=== PATIENT | male | born 2000 | race Caucasian/White ===

== ENCOUNTER 2021-03-20 17:47 | Emergency (ER) | payer MEDICAID, SELFPAY ==
[2021-03-20 17:48] VITALS: BP 140/67; PULSE 80; RESP 16; TEMP 36.6; O2SAT 100; BMI 23.3
--- NOTE | 2021-03-20 18:00 | EX.ED.DYSGE1 ---
HPI History of Present Illness Chief Complaint: Nausea/Vomiting Informant: patient and parent Onset/Context/Timing Onset: Today Current Severity: Moderate Maximum Severity: Moderate Narrative Narrative: Patient presents with nausea vomiting, body aches, subjective fever that started today. He admits to getting drunk last night. When he woke up this morning he was feeling ill. He did not measure his temperature but felt feverish. He is also had chills and sweats. He had vomiting but no diarrhea. No cough or URI symptoms. PFSH PFSH Medical History no medical history no medical history Home Medications ondansetron 4 mg PO Q8H PRN #10 tab 03/20/21 [Rx Last Taken Unknown] Allergy/AdvReac Type Severity Reaction Status Date / Time No Known Allergies Allergy Verified 03/20/21 17:48 Surgical History (Updated 03/20/21 @ 18:[address] Celia Serrato MD) H/O wrist surgery Social History Smoking Status: Current every day smoker tobacco type: e-cigarettes ROS ROS ED Constitutional Constitutional ED: Reports chills, fever(s), subjective and sweats Eyes Eyes: Denies change in vision ENT ENT ED: Denies sore throat Cardiovascular Cardiovascular: Denies chest pain Respiratory/Chest Respiratory/Chest: Denies cough or dyspnea Gastrointestinal Gastrointestinal: Reports abdominal pain, nausea and vomiting; Denies diarrhea Genitourinary Genitourinary ED: Denies dysuria Musculoskeletal Musculoskeletal: Reports myalgias; Denies back pain Integumentary Denies rash Neurologic Neurologic: Denies headache(s) or weakness Allergic/Immunologic Allergic/Immunologic ED: Denies urticaria EXAM Physical Exam Const Vital Signs: 03/20/21 17:48 Temperature 97.9 F Temperature Source Temporal Pulse Rate 80 Respiratory Rate 16 Blood Pressure 140/67 H Blood Pressure Mean 91 Pulse Ox 100 Oxygen Delivery Method Room Air Positive well nourished and well developed General Appearance ED: well developed HEENT Reports dry mucous membranes Mouth ED: Yes dry mucous membranes Mouth: dry mucous membranes Eyes PERRL and EOMs intact bilaterally Neck supple Chest Wall inspection of chest normal and palpation of chest normal Resp normal respiratory effort and clear to auscultation bilaterally Cardio regular rate and regular rhythm GI non-tender Auscultation: hypoactive bowel sounds Palpation: soft Extremity normal to inspection Neuro oriented x3 Sensorium / Orientation: alert Psych mental status grossly normal Skin no rashes or lesions noted MDM MDM MDM Narrative Medical decision making narrative: IV fluids and Zofran given. Lab work obtained. Lab Data Attestation: I reviewed the patient's lab results. Labs: Laboratory Results - last 24 hr 03/20/21 03/20/21 18:10 18:10 WBC 10.8 RBC 5.11 Hgb 16.1 Hct 45.3 MCV 88.6 MCH 31.5 MCHC 35.5 RDW Std Deviation 43.6 RDW Coeff of Chelsi 13.3 Plt Count 320 MPV 9.5 Immature Gran % (Auto) 0.400 Neut % (Auto) 86.6 H Lymph % (Auto) 9.3 L [place] % (Auto) 3.3 Eos % (Auto) 0.1 Baso % (Auto) 0.3 Absolute Neuts (auto) 9.3 H Absolute Lymphs (auto) 1.00 Nucleated RBC % 0 Sodium 137 Potassium 4.8 Chloride 106 Carbon Dioxide 23.0 Anion Gap 8 BUN 19 H Creatinine 1.19 Estim Creat Clear Calc 109.59 Est GFR (MDRD) Af Amer 101 Est GFR (MDRD) Non-Af 83 BUN/Creatinine Ratio 16.0 Glucose 79 Calcium 9.5 Total Bilirubin 0.80 Direct Bilirubin 0.24 AST 38 H ALT 35 Alkaline Phosphatase 73 Total Protein 8.2 Albumin 4.6 Globulin 3.6 Lipase 32 L Treatment and Re-Evaluation Comments:: Lab work largely unremarkable. On repeat evaluation patient feeling improved. Patient able to tolerate small amounts of Sprite. Patient be given prescription for Zofran. Discharge Plan Triage Chief Complaint: Nausea/Vomiting Other Complaint: Fever ED Provider: Celia Serrato Dx/Rx/DC Orders Clinical Impression: Vomiting Instructions: ED Vomiting (Adult) Prescriptions: New ondansetron 4 mg tablet,disintegrating 4 mg PO Q8H PRN (Reason: nausea and vomiting) Qty: 10 RF: 0 Primary Care Provider: Care Physician,No Primary Referrals: Nevaeh Salcedo MD [STAFF PHYSICIAN] - As Needed Care Physician,No Primary [Primary Care Provider] - Disposition Disposition: Home, Self Care
[2021-03-20] MEDS: Ondansetron 4 MG/2 ML Vial IV (18:12)
[2021-03-20] MEDS: Ketorolac 30 MG/ML Syringe IV (18:12)
[2021-03-20] MEDS: 0.9% Normal Saline 1,000 ML 1000 ML IV (18:12)
[2021-03-20 18:35] LABS: AST(SGOT) 38 U/L (15-37); Alanine Aminotransfer ALT/SGPT 35 U/L (16-61); Albumin, Serum 4.6 g/dL (3.2-5.0); Alkaline Phosphatase 73 U/L (45-117); Anion Gap 8 (5-15); BUN 19 mg/dL (7-18); Bilirubin, Direct 0.24 mg/dL (0.00-0.30); Calcium,Total 9.5 mg/dL (8.5-10.1); Chloride 106 mmol/L (98-107); Creatinine, Serum 1.19 mg/dL (0.70-1.30); EST Glomerular Filtration Rate 83 mL/min (>60); Est Glom Filt Rate - Afr Amer 101 mL/min (>60); Estimated Creatinine Clearance 109.59 ml/min; Globulin 3.6 g/dL (2.2-4.2); Glucose 79 mg/dL (74-106); Lipase 32 U/L (73-393); Potassium 4.8 mmol/L (3.5-5.1); Protein, Total 8.2 g/dL (6.4-8.2); Sodium Level 137 mmol/L (136-145)
[2021-03-20 18:40] LABS: Absolute Neutrophil Count 9.3 X10^3/uL (2.0-7.7); Basophil# 0.03 X10^3/uL; Basophil% 0.3 % (0-1); Eosinophil# 0.01 X10^3/uL; Eosinophils% 0.1 % (0-5); Hematocrit 45.3 % (40-54); Hemoglobin 16.1 g/dL (13.0-16.5); Lymphocyte % 9.3 % (19-41); Mean Corp Hgb Conc 35.5 g/dL (32-36); Mean Corpuscular Hgb 31.5 pg (27.0-32.0); Mean Corpuscular Volume 88.6 fL (80-94); Mean Platelet Vol. 9.5 fl (6.2-12.0); Monocyte# 0.36 X10^3/uL; Monocyte% 3.3 % (0-10); NRBC Flagged by Analyzer 0 % (0-5); Neutrophil # 9.33 X10^3/uL (2.7-7.7); Neutrophil % 86.6 % (47-70); Platelet Count 320 K/mm3 (150-450); RBC Distribution Width CV 13.3 % (11.6-14.6); RBC Distribution Width SD 43.6 fl (35.1-43.9); Red Blood Count 5.11 M/mm3 (4.6-6.2); White Blood Count 10.8 K/mm3 (4.4-11.0)
[2021-03-20 19:35] VITALS: BP 125/65; PULSE 76; RESP 17; O2SAT 99
--- NOTE | 2021-03-20 19:36 | NURSING ---
Patient done with care before need for maintenance fluids and keeping PO liquids down. Waiting on pharm for zofran home use.
== END 2021-03-20 19:51 | disposition home or self-care (01) ==
PROVIDERS: Emergency Provider Emergency Medicine; Visit Provider Emergency Medicine
DX: R11.2 Nausea with vomiting, unspecified (principal); R50.9 Fever, unspecified; F17.210 Nicotine dependence, cigarettes, uncomplicated
CPT/HCPCS: 80048; 80076; 83690; 85025; 87426; 96361; 96374; 96375; 99283; J7030; A4216; J2405

== ENCOUNTER 2021-03-26 00:06 | Emergency (ER) | payer MEDICAID, SELFPAY ==
[2021-03-26 00:07] VITALS: BP 129/78; PULSE 66; RESP 16; TEMP 36.7; O2SAT 98; BMI 23.6
--- NOTE | 2021-03-26 00:28 | EDS_ITS ---
HPI History of Present Illness Chief Complaint: ETOH Intox Informant: patient Narrative Narrative: Patient presents with concern for alcohol poisoning. He states he was here earlier this week with nausea and vomiting after drinking. It sounds like it got better. He states he started having nausea vomiting again today. At first he denied any drinking. He states he has not drank at all since he was seen here. Then I find out he did drink today. It took quite some time to find out that he was drinking beer rather than liquor or wine. But he cannot tell me how many beers he has been drinking. He cannot tell me if it is one beer or 30 beers 1 sixpack a case or anything. The patient is having quite a bit of difficulty telling me really any of his history and any useful detail. Of note, the patient is not at all sleepy or lethargic. He is wide awake and alert. He just seems to not be able to answer these or willing to be answering these questions. He denies pain but admits to vomiting. He has not seen blood. He states he has no chronic medical conditions He has no known allergies He was prescribed Zofran but did not take it because he does not like to take meds. Only surgery is wrist surgery. Is a student locally, does drink alcohol as above. PFSH PFSH Home Medications ondansetron 4 mg PO Q8H PRN #10 tab 03/20/21 [Rx Last Taken Unknown] Allergy/AdvReac Type Severity Reaction Status Date / Time No Known Allergies Allergy Verified 03/20/21 17:48 Surgical History H/O wrist surgery Social History Smoking Status: Current every day smoker tobacco type: e-cigarettes ROS ROS ED Constitutional Constitutional ED: Denies chills or fever(s) Eyes Eyes: Denies blurry vision or diplopia ENT ENT ED: Denies rhinorrhea Cardiovascular Cardiovascular: Denies chest pain Respiratory/Chest Respiratory/Chest: Denies cough or dyspnea Gastrointestinal Gastrointestinal: Reports nausea and vomiting; Denies abdominal pain or diarrhea Genitourinary Genitourinary ED: Denies dysuria Musculoskeletal Musculoskeletal: Denies myalgias Integumentary Denies rash Neurologic Neurologic: Denies headache(s) Endocrine Endocrinology: Denies polydipsia or polyuria Allergic/Immunologic Allergic/Immunologic ED: Denies urticaria EXAM Physical Exam Const Vital Signs: 03/26/21 00:07 Temperature 98.1 F Temperature Source Temporal Pulse Rate 66 Respiratory Rate 16 Blood Pressure 129/78 H Blood Pressure Mean 95 Pulse Ox 98 Oxygen Delivery Method Room Air Positive well nourished and well developed Constitutional Narrative: Patient is spontaneously wide awake and alert. He is nontoxic in appearance. He is holding an emesis bag but is not actually vomiting while I am in the room. General Appearance ED: well developed and NAD; Negative for cyanotic or diaphoretic HEENT Reports moist mucous membranes Negative for trauma Eyes General Eye ED: Negative for pale conjunctiva or scleral icterus Neck no JVD Chest Wall inspection of chest normal Resp normal respiratory effort and clear to auscultation bilaterally Effort and Inspection: Negative for pain with movement Auscultation: Negative for rales, rhonchi or wheezes Cardio regular rate GI normal to inspection, nondistended, normoactive bowel sounds, non-tender and non-distended Palpation: soft Back/Spine no CVA tenderness Extremity normal to inspection Neuro Sensorium / Orientation: alert Psych mental status grossly normal Skin no rashes or lesions noted General Skin Exam: Negative for jaundice MDM MDM MDM Narrative Medical decision making narrative: Patient CBC is normal. Electrolytes show minimal elevation of chloride and decreased potassium. These will self correct. LFTs are normal. Lipase is normal. Alcohol is quite high at 226. This patient is awake and alert. This makes me suspicious that he probably drinks regularly and more than he implies. He is not interested in detox. He has not had further vomiting. As long as no other issues occur, we will discharge him when he is sober. He is encouraged to not drink and to actually take the Zofran if he has problems with vomiting. Repeat abdominal exam shows that it is still benign. Patient is watched here. He has had no issues. No vomiting. [employer] is taking him back. He has been watched for over 3 hours. Lab Data Attestation: I reviewed the patient's lab results. Labs: Laboratory Results - last 24 hr 03/26/21 03/26/21 03/26/21 00:30 00:30 00:30 WBC 6.3 RBC 4.95 Hgb 15.6 Hct 43.7 MCV 88.3 MCH 31.5 MCHC 35.7 RDW Std Deviation 41.8 RDW Coeff of Chelsi 12.9 Plt Count 263 MPV 9.2 Immature Gran % (Auto) 0.200 Neut % (Auto) 50.9 Lymph % (Auto) 41.[address] [place] % (Auto) 5.7 Eos % (Auto) 1.3 Baso % (Auto) 0.5 Absolute Neuts (auto) 3.2 Absolute Lymphs (auto) 2.62 Nucleated RBC % 0 Sodium 140 Potassium 3.4 L Chloride 109 H Carbon Dioxide 23.0 Anion Gap 8 BUN 13 Creatinine 1.17 Estim Creat Clear Calc 111.46 Est GFR (MDRD) Af Amer 103 Est GFR (MDRD) Non-Af 85 BUN/Creatinine Ratio 11.1 Glucose 106 Calcium 8.0 L Total Bilirubin 0.30 AST 22 ALT 32 Alkaline Phosphatase 65 Total Protein 7.5 Albumin 4.1 Globulin 3.4 Albumin/Globulin Ratio 1.2 Lipase 162 Ethyl Alcohol 226.0 Discharge Plan Triage Chief Complaint: ETOH Intox ED Provider: Frank Glaser Dx/Rx/DC Orders Clinical Impression: Vomiting, Alcohol intoxication Instructions: ED Alcohol Abuse Prescriptions: No Action ondansetron 4 mg tablet,disintegrating 4 mg PO Q8H PRN (Reason: nausea and vomiting) Qty: 10 RF: 0 Primary Care Provider: Care Physician,No Primary Referrals: Satnam Frank DO [STAFF PHYSICIAN] - As soon as possible Care Physician,No Primary [Primary Care Provider] - Disposition Disposition: Home, Self Care
[2021-03-26 00:34] LABS: Absolute Lymphocyte Count 2.62 X10^3/uL (0.83-4.51); Absolute Neutrophil Count 3.2 X10^3/uL (2.0-7.7); Basophil# 0.03 X10^3/uL; Basophil% 0.5 % (0-1); Eosinophil# 0.08 X10^3/uL; Eosinophils% 1.3 % (0-5); Hematocrit 43.7 % (40-54); Hemoglobin 15.6 g/dL (13.0-16.5); Lymphocyte # 2.62 X10^3/ul (0.83-4.51); Lymphocyte % 41.4 % (19-41); Mean Corp Hgb Conc 35.7 g/dL (32-36); Mean Corpuscular Hgb 31.5 pg (27.0-32.0); Mean Corpuscular Volume 88.3 fL (80-94); Mean Platelet Vol. 9.2 fl (6.2-12.0); Monocyte# 0.36 X10^3/uL; Monocyte% 5.7 % (0-10); NRBC Flagged by Analyzer 0 % (0-5); Neutrophil # 3.23 X10^3/uL (2.7-7.7); Neutrophil % 50.9 % (47-70); Platelet Count 263 K/mm3 (150-450); RBC Distribution Width CV 12.9 % (11.6-14.6); RBC Distribution Width SD 41.8 fl (35.1-43.9); Red Blood Count 4.95 M/mm3 (4.6-6.2); White Blood Count 6.3 K/mm3 (4.4-11.0)
[2021-03-26] MEDS: Ondansetron 4 MG/2 ML Vial IV (00:37)
[2021-03-26] MEDS: 0.9% Normal Saline 1,000 ML 1000 ML IV (00:37)
[2021-03-26 00:58] LABS: ALB/GLOB Ratio 1.2 RATIO (0.9-2.4); AST(SGOT) 22 U/L (15-37); Alanine Aminotransfer ALT/SGPT 32 U/L (16-61); Albumin, Serum 4.1 g/dL (3.2-5.0); Alkaline Phosphatase 65 U/L (45-117); Anion Gap 8 (5-15); BUN 13 mg/dL (7-18); BUN/Creat Ratio 11.1 RATIO (10-20); Chloride 109 mmol/L (98-107); Creatinine, Serum 1.17 mg/dL (0.70-1.30); EST Glomerular Filtration Rate 85 mL/min (>60); Est Glom Filt Rate - Afr Amer 103 mL/min (>60); Estimated Creatinine Clearance 111.46 ml/min; Globulin 3.4 g/dL (2.2-4.2); Glucose 106 mg/dL (74-106); Lipase 162 U/L (73-393); Potassium 3.4 mmol/L (3.5-5.1); Protein, Total 7.5 g/dL (6.4-8.2); Sodium Level 140 mmol/L (136-145)
--- NOTE | 2021-03-26 01:52 | ED.RN ---
Patient gave this RN verbal permission to talk to mother over the phone. Patients mother would like an update whenever he is discharged.
--- NOTE | 2021-03-26 02:49 | ED.RN ---
pts mother called and is requesting her son receive another bag of fluid and more zofran. ATTEMPTED TO EXPLAIN TO HER THAT HER SON WAS DOING FINE AND THAT HE RECEIVED THE MEDICATIONS THAT THE DR FELT WAS APPROPRIATE. SHE STATED SHE IS 2 HRS AWAY AND IS WORRIED BECAUSE HE DOESN'T FEEL WELL. ATTEMPTED TO EXPLAIN TO HER THAT HE WILL NOT FEEL WELL UNTIL THE ALCOHOL WEARS OFF AND THE HANGOVER GOES AWAY. EXPLAINED THERE IS NO QUICK FIX FOR THAT. SHE STATED THAT SHE FELT THAT WE WERE PUNISHING HIM. EXPLAINED THAT WAS NOT THE CASE AND AGAIN THAT THE PHYSICIAN ALSO DID LABS AND HER SON IS FINE. TRIED TO EXPLAIN THAT ANYONE THAT DRINKS WILL FEEL BAD UNTIL IT WEARS OFF. SHE STATED SHE WAS A NURSE. AGAIN TRIED TO REITERATE HE IS FEELING BAD BECAUSE OF HIS DRINKING. TRIED TO USE MYSELF A EXAMPLE IN A SIMILIAR SITUATION OF DRINKING YOUNG AND DIDN'T GO TO THE ER BUT HAD TO WAIT OUT THE HANGOVER PROCESS. MOTHER THEN ATTEMPTED TO TURN THAT AROUND TO SOUND LIKE I WAS SAYING HE SHOULDN'T BE HERE. EXPLAINED AGAIN THAT THE POINT OF THAT STORY WAS TO EXPLAIN THERE IS NO QUICK FIX TO A HANGOVER. SHE STATED SHE IS NOT HAPPY WITH HIS TREATMENT NOR HIS TREATMENT WHILE BEING HERE. ASKED WHAT SHE MEANT AND SHE WAS UNABLE TO SAY ANYTHING OTHER THAN HE SHOULD BE ABLE TO GET MORE MEDS AND THINGS TO MAKE HIM FEEL BETTER AND THEN GO BACK TO SCHOOL. MOTHER ALSO STATED THE EARLIER NURSE TOLD HER HE HAD BEEN DRINKING ALL WEEK BUT THE PT TOLD HER THAT HE DRANK LAST WEEKEND AND THEN TONIGHT SO SHE FEELS THAT IS WHY HE IS SICK. EXPLAINED THAT THE PT HAD TOLD TE NURSE THAT HE HAD BEEN DRINKING ALL WEEK. SHE STATED THAT WAS NOT THE CASE. QUICKLY CHANGED THAT SUBJECT AND EXPLAINED THAT THE PT WOULD BE DISCHARGED AND [facility] SO HE COULD BE WATCHED SO SHE COULD FEEL REASSURED THAT HE WOULDN'T BE ALONE. MOTHER THAN STATED SHE WOULD CONTACT [facility] BECAUSE SHE DOES NOT FEEL HER OR HER SON WERE TREATED APPROPRIATELY. PHYSICIAN AWARE OF SITUATED AND DISCHARGED TO [facility]
[2021-03-26 03:18] VITALS: PULSE 65; RESP 18; O2SAT 99
== END 2021-03-26 03:15 | disposition home or self-care (01) ==
PROVIDERS: Emergency Provider Emergency Medicine; Visit Provider Emergency Medicine
DX: R11.10 Vomiting, unspecified (principal); F10.129 Alcohol abuse with intoxication, unspecified; F17.210 Nicotine dependence, cigarettes, uncomplicated; Y90.7 Blood alcohol level of 200-239 mg/100 ml
CPT/HCPCS: 80053; 82077; 83690; 85025; 96361; 96374; 99282; J7030; A4216; J2405

== ENCOUNTER 2021-11-13 00:45 | Emergency (ER) | payer MEDICAID, SELFPAY ==
[2021-11-13 00:47] VITALS: PULSE 77; RESP 17; TEMP 36.5; O2SAT 99; BMI 23.7
[2021-11-13 00:49] VITALS: BP 129/68; PULSE 61; RESP 18; TEMP 36.5; O2SAT 98; O2SAT 99
--- NOTE | 2021-11-13 00:54 | EDS_ITS ---
HPI History of Present Illness Chief Complaint: ETOH Intox Detail of Chief Complaint: Vomiting Informant: patient and parent Onset/Context/Timing Onset: Today Narrative Narrative: Patient presents after drinking too much and vomiting for the past hour. He drank approximate a bottle of vodka over the past 5 hours or so. He states the last hour he has had vomiting and cannot keep anything down. He does complain of a nauseous feeling in his stomach as well as some abdominal pain. He has not seen any blood in his vomitus. PFSH PFSH Medical History no medical history no medical history Home Medications ondansetron 4 mg disintegrating tablet 4 mg PO Q8H PRN nausea and vomiting #10 tabs 11/13/21 [Rx Last Taken Unknown] Allergy/AdvReac Type Severity Reaction Status Date / Time No Known Allergies Allergy Verified 11/13/21 00:51 Surgical History H/O wrist surgery Social History Smoking Status: Current every day smoker tobacco type: e-cigarettes ROS ROS ED Constitutional Constitutional ED: Denies chills or fever(s) Eyes Eyes: Denies change in vision or discharge from eye(s) ENT ENT ED: Denies discharge from eye(s), rhinorrhea or sore throat Cardiovascular Cardiovascular: Denies chest pain or palpitations Respiratory/Chest Respiratory/Chest: Denies cough or dyspnea Gastrointestinal Gastrointestinal: Reports abdominal pain, nausea and vomiting; Denies diarrhea Genitourinary Genitourinary ED: Denies dysuria Musculoskeletal Musculoskeletal: Denies back pain or extremity pain Integumentary Denies Abrasions or rash Neurologic Neurologic: Denies headache(s) or weakness Psychiatric Psychiatric: Denies anxiety or depression Allergic/Immunologic Allergic/Immunologic ED: Denies lip swelling or urticaria EXAM Physical Exam Const Vital Signs: 11/13/21 00:47 11/13/21 00:49 11/13/21 00:49 Temperature 97.7 F L 97.7 F L Temperature Source Temporal Temporal Pulse Rate 77 61 Respiratory Rate 17 18 Blood Pressure 129/68 H Blood Pressure Mean 88 Pulse Ox 99 99 98 Oxygen Delivery Method Room Air Room Air Room Air 11/13/21 02:33 11/13/21 05:04 Temperature Temperature Source Pulse Rate 65 76 Respiratory Rate 18 17 Blood Pressure 129/89 H 120/82 H Blood Pressure Mean 102 94 Pulse Ox 100 98 Oxygen Delivery Method Room Air Room Air Positive well nourished and well developed General Appearance ED: well developed HEENT Reports normocephalic and head/scalp atraumatic Eyes PERRL and EOMs intact bilaterally Neck supple Chest Wall inspection of chest normal and palpation of chest normal Resp normal respiratory effort and clear to auscultation bilaterally Cardio regular rate and regular rhythm GI non-tender Auscultation: hypoactive bowel sounds Palpation: soft Back/Spine no CVA tenderness Extremity normal to inspection Neuro oriented x3 and no sensory deficits noted Sensorium / Orientation: alert Motor Exam: strength 5/5 throughout Psych mental status grossly normal Skin no rashes or lesions noted MDM MDM MDM Narrative Medical decision making narrative: Patient was initially given IV fluids along with Zofran and Protonix. Lab work obtained. Lab Data Attestation: I reviewed the patient's lab results. Labs: Laboratory Results - last 24 hr 11/13/21 11/13/21 00:59 00:59 WBC 9.8 RBC 4.76 Hgb 14.3 Hct 42.3 MCV 88.9 MCH 30.0 MCHC 33.8 RDW Std Deviation 41.2 RDW Coeff of Chelsi 12.6 Plt Count 302 MPV 9.1 Immature Gran % (Auto) 0.200 Neut % (Auto) 59.4 Lymph % (Auto) 32.1 [place] % (Auto) 6.8 Eos % (Auto) 1.2 Baso % (Auto) 0.3 Absolute Neuts (auto) 5.8 Absolute Lymphs (auto) 3.13 Nucleated RBC % 0 Sodium 140 Potassium 3.7 Chloride 106 Carbon Dioxide 24.0 Anion Gap 10 BUN 13 Creatinine 1.17 Estim Creat Clear Calc 111.46 Est GFR (MDRD) Af Amer 102 Est GFR (MDRD) Non-Af 85 BUN/Creatinine Ratio 11.1 Glucose 119 H Calcium 9.0 Total Bilirubin 0.50 Direct Bilirubin 0.14 AST 27 ALT 23 Alkaline Phosphatase 79 Total Protein 7.9 Albumin 4.2 Globulin 3.7 Lipase 75 Treatment and Re-Evaluation Narrative: Lab work is unremarkable. Patient did have recurrent vomiting and received a dose of Reglan and Benadryl. Patient has slept in the ER majority of the night. At this time he is up and ambulating without difficulty and states he feels much improved. He is tolerating ice chips. I will write him a prescription for Zofran that he can fill if needed. Return instructions provided. Discharge Plan Triage Chief Complaint: ETOH Intox ED Provider: Celia Serrato Dx/Rx/DC Orders Clinical Impression: Vomiting Instructions: ED Alcohol Intoxication, ED Vomiting (Adult) Prescriptions: New ondansetron 4 mg tablet,disintegrating 4 mg PO Q8H PRN (Reason: nausea and vomiting) Qty: 10 0RF Primary Care Provider: Care Physician,No Primary Referrals: [facility] [Group of Physicians] - As Needed Care Physician,No Primary [Primary Care Provider] - Disposition Disposition: Home, Self Care
[2021-11-13 01:11] LABS: Absolute Lymphocyte Count 3.13 X10^3/uL (0.83-4.51); Absolute Neutrophil Count 5.8 X10^3/uL (2.0-7.7); Basophil# 0.03 X10^3/uL; Basophil% 0.3 % (0-1); Eosinophil# 0.12 X10^3/uL; Eosinophils% 1.2 % (0-5); Hematocrit 42.3 % (40-54); Hemoglobin 14.3 g/dL (13.0-16.5); Lymphocyte # 3.13 X10^3/ul (0.83-4.51); Lymphocyte % 32.1 % (19-41); Mean Corp Hgb Conc 33.8 g/dL (32-36); Mean Corpuscular Volume 88.9 fL (80-94); Mean Platelet Vol. 9.1 fl (6.2-12.0); Monocyte# 0.66 X10^3/uL; Monocyte% 6.8 % (0-10); NRBC Flagged by Analyzer 0 % (0-5); Neutrophil # 5.79 X10^3/uL (2.7-7.7); Neutrophil % 59.4 % (47-70); Platelet Count 302 K/mm3 (150-450); RBC Distribution Width CV 12.6 % (11.6-14.6); RBC Distribution Width SD 41.2 fl (35.1-43.9); Red Blood Count 4.76 M/mm3 (4.6-6.2); White Blood Count 9.8 K/mm3 (4.4-11.0)
[2021-11-13] MEDS: 0.9% Normal Saline 1,000 ML 150 ML IV (01:11)
[2021-11-13] MEDS: Ondansetron 4 MG/2 ML Vial IV (01:11)
[2021-11-13 01:28] LABS: AST(SGOT) 27 U/L (15-37); Alanine Aminotransfer ALT/SGPT 23 U/L (16-61); Albumin, Serum 4.2 g/dL (3.2-5.0); Alkaline Phosphatase 79 U/L (45-117); Anion Gap 10 (5-15); BUN 13 mg/dL (7-18); BUN/Creat Ratio 11.1 RATIO (10-20); Bilirubin, Direct 0.14 mg/dL (0.00-0.30); Chloride 106 mmol/L (98-107); Creatinine, Serum 1.17 mg/dL (0.70-1.30); EST Glomerular Filtration Rate 85 mL/min (>60); Est Glom Filt Rate - Afr Amer 102 mL/min (>60); Estimated Creatinine Clearance 111.46 ml/min; Globulin 3.7 g/dL (2.2-4.2); Glucose 119 mg/dL (74-106); Lipase 75 U/L (73-393); Potassium 3.7 mmol/L (3.5-5.1); Protein, Total 7.9 g/dL (6.4-8.2); Sodium Level 140 mmol/L (136-145)
[2021-11-13 02:33] VITALS: BP 129/89; PULSE 65; RESP 18; O2SAT 100
[2021-11-13] MEDS: DiphenhydrAMINE 50 MG/ML Syringe 12.5 MG IV (02:43)
[2021-11-13] MEDS: Metoclopramide 10 MG/2 ML Vial 5 MG IV (02:44)
[2021-11-13 05:04] VITALS: BP 120/82; PULSE 76; RESP 17; O2SAT 98
[2021-11-13 06:04] VITALS: BP 119/71; PULSE 55; RESP 16; O2SAT 100
== END 2021-11-13 06:10 | disposition home or self-care (01) ==
PROVIDERS: Emergency Provider Emergency Medicine; Visit Provider Emergency Medicine
DX: R11.10 Vomiting, unspecified (principal); F17.210 Nicotine dependence, cigarettes, uncomplicated; R10.9 Unspecified abdominal pain
CPT/HCPCS: 80048; 80076; 83690; 85025; 96361; 96374; 96375; 99283; J7030; J7040; A4216; J2405

== ENCOUNTER → 2022-01-19 | Outpatient (CLI) | payer MEDICAID, SELFPAY ==
--- NOTE | 2022-01-19 17:30 | MRI_ITS ---
EXAM: MR LEFT LOWER EXTREMITY WITHOUT INTRAVENOUS CONTRAST, KNEE CLINICAL INDICATION: SPRAIN TECHNIQUE: Multiplanar and multisequence MR images of the left knee without intravenous contrast. This report was created using [employer] report generation technology. COMPARISON: None. FINDINGS: BONES/JOINTS: See below. EXTENSOR MECHANISM: Unremarkable. MEDIAL MENISCUS: Medial meniscus is intact. LATERAL MENISCUS: Complex tear of the body segment posterior horn of the lateral meniscus. Tear extends to involve a portion of the anterior horn of the lateral meniscus also. MEDIAL CAPSULE/SUPPORTING STRUCTURES: Unremarkable. Intact. LATERAL CAPSULE/SUPPORTING STRUCTURES: Unremarkable. Lateral collateral ligamentous complex, inclusive of the popliteal tendon, are intact. ANTERIOR CRUCIATE LIGAMENT: Unremarkable. Intact. POSTERIOR CRUCIATE LIGAMENT: Unremarkable. Intact. MUSCLES: Unremarkable. CARTILAGE: No focal chondral defects or significant arthritic changes. FLUID: Unremarkable. No joint effusion. OTHER SOFT TISSUES: Unremarkable. No popliteal cyst. MRI/Lower Ext Joint Only (Routine) IMPRESSION: Complex tear of the body segment posterior horn of the lateral meniscus. Tear extends to involve a portion of the anterior horn of the lateral meniscus also. Electronically Signed: Brock Murillo MD at 18:57 EST ,
== END | disposition home or self-care (01) ==
PROVIDERS: Referring Provider Orthopaedic Surgery; Visit Provider Orthopaedic Surgery
DX: S83.92XA Sprain of unspecified site of left knee, initial encounter (principal)
CPT/HCPCS: 73721

== ENCOUNTER 2022-11-26 14:56 | Emergency (ER) | payer MEDICAID, SELFPAY ==
[2022-11-26 14:57] VITALS: BP 150/93; PULSE 111; RESP 18; TEMP 36.1; O2SAT 99; BMI 24.5
--- NOTE | 2022-11-26 15:03 | CT_ITS ---
STUDY: CT ABDOMEN AND PELVIS WITH CONTRAST REASON FOR EXAM: Male, 21 years old. abdominal trauma -- IV PO Contrast RADIATION DOSAGE (If Supplied By Facility): CTDIvol = ( 11.94 ) mGy, DLP = ( 556.76 ) mGycm TECHNIQUE: Transaxial images were obtained from the dome of the diaphragm to the symphysis pubis without oral contrast. Oral and amp; IV Gastrografin and amp; 100mL Isovue-300 was administered. Sagittal and coronal images were reconstructed. Individualized dose optimization techniques were used for this CT. COMPARISON: None. FINDINGS: The visualized lung bases are unremarkable. The visualized portions of the heart are within normal limits. Normal liver. Normal gallbladder and extrahepatic biliary system. Normal spleen. Normal pancreas. Normal bilateral adrenal glands. Normal right kidney. Normal left kidney. Normal visualized stomach. Normal small intestine. Diffuse thickening of the wall throughout some upper aspect of the right colon, transverse and descending colon consistent with diffuse colitis. The descending colon is incompletely distended. The appendix is visualized and appears normal. Normal abdominal aorta. Normal inferior vena cava. Normal retroperitoneum. Normal urinary bladder. Normal abdominal wall. Normal osseous structures. CT/Abdomen/Pelvis WITH Contrast IMPRESSION: Normal abdominal viscera with no evidence of visceral or intrathoracic injury. Possible mild diffuse colitis, clinical correlation recommended. No acute appendicitis or bowel obstruction. Electronically Signed: Priyanka Wadsworth MD at 18:07 EDT ,
--- NOTE | 2022-11-26 15:12 | EDS_ITS ---
HPI History of Present Illness Chief Complaint: Abd Pain Informant: patient Narrative Narrative: 21-year-old male to the emergency room with right lower quadrant abdominal pain. Patient played [employer] football game yesterday. During 1 tackle when he was hit in the right lower quadrant of his abdomen with a cleat. The patient states that he has had pain there since. It is worse with touch. This morning he had loose stool (which is not uncommon) but when he looked at it it seemed blackish. He denies any mucus or bright red blood. He denies any urinary symptoms/hematuria. No fever or vomiting. Pain is not worse with movement or sitting up. He denies any abdominal wall bruising or hernia symptoms. He recently completed a azithromycin prescription for bronchitis. PFSH PFSH Home Medications ondansetron 4 mg disintegrating tablet 4 mg PO Q8H PRN nausea and vomiting #10 tabs 11/13/21 [Rx Last Taken Unknown] Allergy/AdvReac Type Severity Reaction Status Date / Time No Known Allergies Allergy Verified 11/26/22 14:57 Surgical History H/O knee surgery H/O wrist surgery Social History Smoking Status: Current every day smoker tobacco type: cigarettes and e- cigarettes ROS ROS ED Constitutional Constitutional ED: Denies chills, fever(s) or weight loss Eyes Eyes: Denies change in vision or diplopia ENT ENT ED: Denies ear pain, rhinorrhea or sore throat Cardiovascular Cardiovascular: Denies chest pain, orthopnea, palpitations or racing heartbeat Respiratory/Chest Respiratory/Chest: Denies cough, dyspnea or orthopnea Gastrointestinal Gastrointestinal: Reports abdominal pain and diarrhea; Denies nausea or vomiting Genitourinary Genitourinary ED: Denies dysuria, hematuria or urinary frequency Musculoskeletal Musculoskeletal: Denies arthralgias, back pain, myalgias or neck pain Integumentary Denies abscess or rash Neurologic Neurologic: Denies headache(s) or weakness Psychiatric Psychiatric: Denies anxiety, depression, suicidal ideation or suicidal thoughts Endocrine Endocrinology: Denies polydipsia, polyphagia or polyuria Allergic/Immunologic Allergic/Immunologic ED: Denies mouth swelling, tongue swelling or urticaria EXAM Physical Exam Const Vital Signs: 11/26/22 14:57 Temperature 96.9 F L Temperature Source Temporal Pulse Rate 111 H Respiratory Rate 18 Blood Pressure 150/93 H Blood Pressure Mean 112 Pulse Ox 99 Oxygen Delivery Method Room Air Positive well nourished and well developed General Appearance ED: well developed HEENT Reports normocephalic, head/scalp atraumatic and moist mucous membranes Eyes PERRL and EOMs intact bilaterally Neck no lymphadenopathy, supple and no JVD Resp normal respiratory effort and clear to auscultation bilaterally Cardio regular rate, regular rhythm and no murmurs GI GI Narrative: The abdomen is soft. He allows deep palpation in the right lower quadrant. No palpable masses felt. No pain with half sit up. Palpation: soft and tender RLQ; Negative for guarding or rebound tenderness present Back/Spine no CVA tenderness and normal ROM Extremity normal to inspection General Extremety ED: Negative for edema General Extremity: Negative for edema Neuro oriented x3 and CN's II-XII intact bilaterally Sensorium / Orientation: alert Motor Exam: strength 5/5 throughout Psych mental status grossly normal Mood & Affect: Negative for depressed or tearful Skin no rashes or lesions noted and no wounds MDM MDM MDM Narrative Medical decision making narrative: White count is low at 7.8. Hemoglobin 15.7. CMP shows a glucose of 109. Normal transaminases and bilirubin. Lipase is normal at 16. Urinalysis shows no overt infection or hematuria. CT of the abdomen pelvis was obtained with oral and IV contrast. There is concern for possible mild diffuse colitis. It is noted that there is possible wall thickening of the upper aspect of the right colon transverse and descending colon. However contrast is not into this area and the descending colon is incompletely distended. I think back to what the patient mentioned of his stools being consistently diarrhea/loose. There may be something to the [facility] meter recommend gastroenterology follow-up. However for today's purposes he has a normal white count hemoglobin of 15.7 no bright red blood in the rectum and no evidence of intra-abdominal trauma. Think he can be discharged home. History & Record Review Discussion w/independent historian: Patient and Family Lab Data Attestation: I reviewed the patient's lab results. Labs: Laboratory Results - last 24 hr 11/26/22 11/26/22 15:19 16:04 WBC 7.8 RBC 5.20 Hgb 15.7 Hct 47.3 MCV 91.0 MCH 30.2 MCHC 33.2 RDW Std Deviation 42.2 RDW Coeff of Chelsi 12.7 Plt Count 337 MPV 9.2 Immature Gran % (Auto) 0.300 Neut % (Auto) 63.5 Lymph % (Auto) 24.8 Benzie % (Auto) 9.1 Eos % (Auto) 1.8 Baso % (Auto) 0.5 Absolute Neuts (auto) 5.0 Absolute Lymphs (auto) 1.94 Nucleated RBC % 0 Sodium 138 Potassium 4.0 Chloride 106 Carbon Dioxide 24.0 Anion Gap 8 BUN 12 Creatinine 1.23 Estim Creat Clear Calc 105.15 Est GFR (MDRD) Af Amer 96 Est GFR (MDRD) Non-Af 79 BUN/Creatinine Ratio 9.8 L Glucose 109 H Calcium 8.9 Total Bilirubin 0.70 Direct Bilirubin 0.19 AST 24 ALT 25 Alkaline Phosphatase 88 Total Protein 7.6 Albumin 4.1 Globulin 3.5 Lipase 16 Urine Color Yellow Urine Clarity Sl. Cloudy Urine pH 8.0 Ur Specific [place] 1.010 Urine Protein Negative Urine Glucose (UA) Normal Urine Ketones Negative Urine Occult Blood Negative Urine Nitrite Negative Urine Bilirubin Negative Urine Urobilinogen Normal Ur Leukocyte Esterase Negative Urine RBC 0 SEEN Urine WBC 0 SEEN Ur Squamous Epith Cells 0-5 SEEN Urine Bacteria 0 SEEN Urine Mucus 0 SEEN Radiography Diagnostic Testing: Clinical Impression(s) from Imaging Studies Abdomen/Pelvis CT 11/26/22 15:03 IMPRESSION: Normal abdominal viscera with no evidence of visceral or intrathoracic injury. Possible mild diffuse colitis, clinical correlation recommended. No acute appendicitis or bowel obstruction. Electronically Signed: Priyanka Wadsworth MD at 18:07 EDT , Discharge Plan Triage Chief Complaint: Abd Pain ED Provider: Zhou Johnson Dx/Rx/DC Orders Clinical Impression: Abdominal pain, acute, Abdominal contusion Instructions: Abdominal Pain Prescriptions: No Action ondansetron 4 mg tablet,disintegrating 4 mg PO Q8H PRN (Reason: nausea and vomiting) Qty: 10 0RF Primary Care Provider: Care Physician,No Primary Referrals: Friend,Kofi, DO [Med Staff - Active Staff] - As soon as possible (For local gastroenterology) Care Physician,No Primary [Primary Care Provider] - Activity Restrictions/Additional Instructions: As we discussed, it was noted that you could possibly have bowel wall thickening of your large intestine. This is something that I would recommend you following up with gastroenterology for. It would be important to identify colon pathology early in life so it can be managed appropriately. You will find a referral to Dr. Suárez who is a local housecleaner who could visit with you regarding this. Disposition Disposition: Home, Self Care
[2022-11-26 15:33] LABS: Absolute Lymphocyte Count 1.94 X10^3/uL (0.83-4.51); Basophil# 0.04 X10^3/uL; Basophil% 0.5 % (0-1); Eosinophil# 0.14 X10^3/uL; Eosinophils% 1.8 % (0-5); Hematocrit 47.3 % (40-54); Hemoglobin 15.7 g/dL (13.0-16.5); Lymphocyte # 1.94 X10^3/ul (0.83-4.51); Lymphocyte % 24.8 % (19-41); Mean Corp Hgb Conc 33.2 g/dL (32-36); Mean Corpuscular Hgb 30.2 pg (27.0-32.0); Mean Platelet Vol. 9.2 fl (6.2-12.0); Monocyte# 0.71 X10^3/uL; Monocyte% 9.1 % (0-10); NRBC Flagged by Analyzer 0 % (0-5); Neutrophil # 4.97 X10^3/uL (2.7-7.7); Neutrophil % 63.5 % (47-70); Platelet Count 337 K/mm3 (150-450); RBC Distribution Width CV 12.7 % (11.6-14.6); RBC Distribution Width SD 42.2 fl (35.1-43.9); White Blood Count 7.8 K/mm3 (4.4-11.0)
[2022-11-26 15:51] LABS: AST(SGOT) 24 U/L (15-37); Alanine Aminotransfer ALT/SGPT 25 U/L (16-61); Albumin, Serum 4.1 g/dL (3.2-5.0); Alkaline Phosphatase 88 U/L (45-117); Anion Gap 8 (5-15); BUN 12 mg/dL (7-18); BUN/Creat Ratio 9.8 RATIO (10-20); Bilirubin, Direct 0.19 mg/dL (0.00-0.30); Calcium,Total 8.9 mg/dL (8.5-10.1); Chloride 106 mmol/L (98-107); Creatinine, Serum 1.23 mg/dL (0.70-1.30); EST Glomerular Filtration Rate 79 mL/min (>60); Est Glom Filt Rate - Afr Amer 96 mL/min (>60); Estimated Creatinine Clearance 105.15 ml/min; Globulin 3.5 g/dL (2.2-4.2); Glucose 109 mg/dL (74-106); Lipase 16 U/L (13-75); Protein, Total 7.6 g/dL (6.4-8.2); Sodium Level 138 mmol/L (136-145)
[2022-11-26] MEDS: 0.9% Normal Saline (1000mL) 1,000 ML 1000 ML IV (15:51)
[2022-11-26 16:14] LABS: Bacteria 0 SEEN /hpf (None Seen); Mucous, Urine 0 SEEN /hpf (<or=2+); Red Blood Cells-Urine 0 SEEN /hpf (0-5); White Blood Cells 0 SEEN /hpf (0-5)
[2022-11-26 16:15] LABS: Color, Urine Yellow (Yellow); Glucose, Dipstick Normal (Normal); Ketone-Dipstick Negative (Negative); Leukocyte Esterase-Dipstick Negative /ul (Negative); Nitrite-Dipstick Negative (Negative); Occult Blood-Urine Negative /ul (Negative); Protein-Dipstick Negative (Negative); Urine Bilirubin Dipstick Negative (Negative); Urine Clarity Sl. Cloudy (Clear); Urine Urobilinogen Normal (Normal)
[2022-11-26 16:24] LABS: Squamous Epithelial Cells - UA 0-5 SEEN /hpf (0-5)
[2022-11-26 18:27] VITALS: RESP 70; O2SAT 95
== END 2022-11-26 18:28 | disposition home or self-care (01) ==
PROVIDERS: Emergency Provider Emergency Medicine; Visit Provider Emergency Medicine
DX: S30.1XXA Contusion of abdominal wall, initial encounter (principal); F17.210 Nicotine dependence, cigarettes, uncomplicated; R10.31 Right lower quadrant pain; W22.8XXA Striking against or struck by other objects, initial encounter; Y93.61 Activity, american tackle football; Y92.89 Other specified places as the place of occurrence of the external cause; F17.290 Nicotine dependence, other tobacco product, uncomplicated
CPT/HCPCS: 74177; 80048; 80076; 81001; 83690; 85025; 96360; 96361; 99283; J7030; Q9967; A4216